=== PATIENT | male | born 2000 | race African-American/Black ===

== ENCOUNTER 2024-07-03 08:35 | Emergency (ER) | payer OTHER, SELFPAY ==
--- NOTE | ~2024-07-03 | XR_ITS ---
CLINICAL HISTORY: fall 4 view left wrist Comparison: None Findings: Bones intact. No dislocations. Soft tissue edema dorsally. No radiopaque foreign body. IMPRESSION: Soft tissue edema dorsally with no evidence of fracture or malalignment. This document has been electronically signed by: Madi Martin MD on 07/03/2024 10:04:41
[2024-07-03 08:55] VITALS: BP 128/58; PULSE 59; RESP 19; TEMP 36.6; O2SAT 98; BMI 29.4
--- NOTE | 2024-07-03 10:27 | ED.EXTPRO ---
HPI - Extremity Problem General Chief complaint: Extremity Injury, Upper Stated complaint: wrist inj Time Seen by Provider: 07/03/24 10:18 Source: patient Mode of arrival: ambulatory Limitations: no limitations History of Present Illness ED Provider: Myriam Hart NP HPI Narrative: Patient is a 23-year-old male, right-hand dominant who presents emergency department for evaluation of traumatic left wrist pain. Reports while playing basketball yesterday he jumped up to dunk the ball, he ultimately fell backwards bracing himself on the left outstretched hand. Denies head strike or loss of consciousness. Denies numbness tingling or cold sensation to the left hand. Has localized pain particularly over the dorsum of the wrist with swelling. Denies any prior injury to this hand/wrist. Related Data Allergies Allergy/AdvReac Type Severity Reaction Status Date / Time No Known Allergies Allergy Verified 07/03/24 08:59 Review of Systems Review of Systems: Yes all other systems are reviewed and are negative PMFSH Past Medical History Attestation statement: The following information was validated with the patient. Source: old records reviewed Social History Social History Advance Directives: No Advance Directives Information Provided: No Do you have a plan to hurt others: No Plan Physical Exam Vital Signs: Vital Signs: Last Vital Signs Temp 98 F 07/03/24 08:55 Pulse 59 07/03/24 08:55 Resp 19 07/03/24 08:55 BP 128/58 L 07/03/24 08:55 Pulse Ox 98 07/03/24 08:55 O2 Del Method Room Air 07/03/24 08:55 BMI result Body Mass Index 29.4 Appearance: Alert.?Oriented to person, place and time. No acute distress.?Normal affect. CVS: Heart sounds normal. Normal heart rate and rhythm.? Pulses normal.?? Respiratory: No respiratory distress.? Lung sounds clear to auscultation bilaterally?? Skin: Skin warm and dry.? Normal skin color.? Extremities: Mild localized swelling over the dorsum of the right wrist with no obvious deformity. 2+ radial pulse. Decreased extension and flexion at the wrist secondary to pain. Neuro: Moves all extremities spontaneously. Sensation intact bilaterally. Ambulates with normal steady gait. Medical Decision Making Medical Decision Making MDM Narrative: Patient is a 23-year-old male who presents emergency department for evaluation of traumatic left wrist pain as per HPI. Differential diagnosis including fracture, dislocation, sprain. XR was obtained and shows no evidence of acute osseous abnormality. Review conservative treatment for management of sprain, outpatient follow-up with PCP, worrisome signs and symptoms that would warrant re-evaluation emergency department. All questions answered stable for discharge. Differential Diagnosis Differential Diagnoses: The differential diagnosis associated with the presentation includes (See narrative above) Independent Interpretation I performed an independent interpretation of an: Plain X-Ray (See narrative above) Radiology Impression Discussion of test interpretation with radiology: I have reviewed the radiologist's reading. Radiologist Impression: 4 view left wrist Comparison: None Findings: Bones intact. No dislocations. Soft tissue edema dorsally. No radiopaque foreign body. IMPRESSION: Soft tissue edema dorsally with no evidence of fracture or malalignment. Independent Historian Clinical information obtained from an independent historian. History obtained from or confirmed by: Spouse Prescription Management I considered prescription management with: Pain Medication Discharge Plan Discharge Clinical Impression: Left wrist sprain Qualifiers: Encounter type: initial encounter Qualified Code(s): S63.502A - Unspecified sprain of left wrist, initial encounter Patient Disposition: Home, Self-Care Instructions: Wrist Sprain (ED) Additional Instructions: X-ray does not show evidence of fracture dislocation. Be sure to rest over the next few days, apply ice for 10-15 minutes 4-6 times daily. 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 Follow-up with your primary care doctor. You may return to emergency department any new or worsening symptoms or concerns. Referrals: ED Physician,Generic [Physician] - Stand Alone Forms: Work/School Release Print Language: Indonesian
[2024-07-03 10:37] VITALS: BP 128/58; PULSE 59; RESP 19; TEMP 36.6; O2SAT 98
== END 2024-07-03 10:37 | disposition home or self-care (01) ==
PROVIDERS: Emergency Provider Emergency Medicine
DX: S63.502A Unspecified sprain of left wrist, initial encounter (principal); W18.30XA Fall on same level, unspecified, initial encounter; Y93.67 Activity, basketball; Y92.9 Unspecified place or not applicable; Y99.9 Unspecified external cause status; M25.532 Pain in left wrist
CPT/HCPCS: 73110; 99282; 99283

== ENCOUNTER → 2024-07-03 09:26 | Outpatient (BNV) | payer OTHER, MEDICAID, SELFPAY | PROVIDERS: Emergency Provider Emergency Medicine; Visit Provider Radiology Vascular & Interventional Radiology | DX: R60.0 Localized edema (principal) | CPT/HCPCS: 73110 ==